=== PATIENT | male | born 1980 | race Caucasian/White ===

== ENCOUNTER 2019-05-07 20:37 | Emergency (ER) | payer SELFPAY ==
[2019-05-07 20:41] VITALS: BP 163/100; PULSE 88; RESP 18; TEMP 36.6; O2SAT 99
--- NOTE | 2019-05-07 21:02 | ED.GENADUL_ITS ---
Discharge Plan Disposition Patient Disposition: HOME Discharge Details Chief Complaint: Orthopedic Clinical Impression: Acute pain of left shoulder, Injury of left rotator cuff, Tinea pedis Primary Care Provider: None,None ED Provider: Gilbert Ferrari Home Meds and New Rx's Prescriptions: New ibuprofen 800 mg tablet 800 mg PO TID Qty: 30 RF: 0 Discharge Instructions Instructions: Rotator Cuff Injury (ED), Tinea Pedis (ED) Additional Instructions: Use sling over the next 2 weeks. Should remove your arm from the sling a few times a day to perform pendulum exercises. Please take ibuprofen over the counter. Take 600mg by mouth every 6 hours as needed for pain. Please take acetaminophen (tylenol) - 650mg every 6 hours by mouth as needed for pain. Please contact your primary care physician to arrange follow-up. If pain persists, you should follow-up with orthopedics. Use Lotrimin ultra for fungal infection of the feet -dose according to label. Return to the ER for any worsening or new concerning symptoms. Discharge Data Discharge Date/Time-TO BE ENTERED AT DEPARTURE: 05/07/19 21:48 Medical Decision Making 38-year-old male here with left shoulder pain, tender posterior rotator cuff and pain with internal rotation and abduction. Suspect rotator cuff injury. Patient neurovascular intact distally. X-ray of the left shoulder reviewed and interpreted by radiology: No fracture or subluxation demonstrated. Degenerative changes of AC joint Patient was given ibuprofen and Tylenol. A sling was provided. Usual and customary discharge instructions were reviewed with the patient. HPI General Mode of arrival: ambulatory . Date/Time Provider Initiated Documentation: 05/07/19 20:39 . Limitations to Documentation: no limitations . Information obtained by: patient . HPI Narrative: 38-year-old male presents with chief complaint of left shoulder pain. Pain started last night after mowing and raking his yard. Pain moderate. Pain worse with certain movements and when attempting to lift himself off of his couch. No other injury. No associated chest pain. Patient has chronic intermittent neck pain that is unchanged. Related Data Home Medications Medication Instructions Recorded Confirmed ibuprofen 800 mg PO TID #30 tab 05/07/19 Previous Rx's Medication Instructions Recorded ibuprofen 800 mg PO TID #30 tab 05/07/19 Allergies Allergy/AdvReac Type Severity Reaction Status Date / Time Penicillins Allergy Intermediate unsure Unverified 05/07/19 20:41 General Stated Complaint: Orthopedic SHAYY: 4 Review of Systems Cardiovascular Denies chest pain and Denies dyspnea Respiratory Denies dyspnea Musculoskeletal Reports as per HPI Integumentary/Breasts Reports rash (Soles of feet, burning itchy) [facility] Surgical History (Updated 05/07/19 @ 21:17 by Adalid Maki) H/O eye surgery (Acute) H/O spinal fusion (Acute) Social History Smoking/Tobacco Use Status: Current, status unknown Tobacco Type: smokeless tobacco Drug use: Never Substance use type: does not use Do you feel safe at home: Yes Do you feel safe in your relationship?: Yes Exam Const General: cooperative and no acute distress Neck Neck: trachea midline and supple Resp Auscultation: clear to auscultation bilaterally, no rales, no rhonchi and no wheezes Cardio Jugular venous pressure: no JVD Rate: regular rate and not tachycardic Rhythm: regular rhythm Skin Rashes: rashes noted (Feet with scaly red rash of the sole b/l) Neuro General: alert, awake and tone normal Motor: strength 5/5 throughout (distal LUE) Sensory Exam: no sensory deficits noted (distal LUE) Extrem General: no edema Left upper extremity: shoulder/upper arm Details: tenderness Location: other (posterior rotator cuff), axillary nerve sensory function normal, abnormal ROM Details: pain with active ROM Details: in ABduction and in internal rotation and other; no swelling, no deformity and no unsual warmth Course Vital Signs Temperature 36.6 C 05/07/19 20:41 Pulse 88 05/07/19 20:41 Respiratory Rate 18 05/07/19 20:41 Blood Pressure 163/100 H 05/07/19 20:41 Pulse Oximetry 99 05/07/19 20:41 Temperature 36.6 C 05/07/19 20:41 Temperature Source Temporal Artery Scan 05/07/19 20:41 Pulse 88 05/07/19 20:41 Respiratory Rate 18 05/07/19 20:41 Respiratory Effort 05/07/19 20:41 Blood Pressure 163/100 H 05/07/19 20:41 Blood Pressure Position Sitting 05/07/19 20:41 Pulse Oximetry 99 05/07/19 20:41 Oxygen Delivery Method Room Air 05/07/19 20:41 Oxygen Flow Rate 0 05/07/19 20:41 Pain Level 10 05/07/19 20:44
--- NOTE | 2019-05-07 21:10 | DI.RAD_ITS ---
SYMPTOM/DIAGNOSISs: PAIN LEFT SHOULDER: 05/07 Three views were obtained. There are degenerative changes of the acromioclavicular joint. No evidence of acute fracture or dislocation.
[2019-05-07] MEDS: Ibuprofen 600 MG TAB PO (21:14)
[2019-05-07] MEDS: Acetaminophen 325 MG TAB 650 MG PO (21:14)
--- NOTE | 2019-05-07 21:29 | DI.VRAD_ITS ---
EXAM: XR Left Shoulder EXAM DATE/TIME: 05/07/2019 8:56 PM CLINICAL HISTORY: 38 years old, male; Patient HX: Left shoulder pain with lrom, unknown source of injury but pain/difficulty lifting arm TECHNIQUE: Imaging protocol: XR Left shoulder. Views: 2 or more views. Reportedly, axillary views could not be completed. COMPARISON: No relevant prior studies available. FINDINGS: Bones/joints: No fracture or subluxation demonstrated. Degenerative changes of acromioclavicular joint. Surgical wires project over lower cervical spine. Lungs: Visualized portions of the lungs are clear. Soft tissues: Normal. IMPRESSION: No fracture or subluxation demonstrated. Degenerative changes of acromioclavicular joint. Dictated and Authenticated by: Don Dutta MD. Ordering:JUSTINE Hunt MD
== END 2019-05-07 21:48 | disposition home or self-care (01) ==
LOC: ER 21:19
PROVIDERS: Emergency Provider Student in an Organized Health Care Education/Training Program
DX: S46.002A Unspecified injury of muscle(s) and tendon(s) of the rotator cuff of left shoulder, initial encounter (principal); X50.3XXA Overexertion from repetitive movements, initial encounter; B35.3 Tinea pedis
CPT/HCPCS: 99283; 73030; 99282; L3650

== ENCOUNTER 2021-01-26 12:24 | Observation (INO) | payer SELFPAY ==
[2021-01-26 12:30] VITALS: BP 139/104; PULSE 88; RESP 16; TEMP 36.6; O2SAT 95
--- NOTE | 2021-01-26 12:57 | NUR.NOTE ---
Nursing Note: Referral given to Care Management for follow up with dentist FUNMILAYO for tooth pain, poor dentition, chronic fx tooth. Referral given to Care Management to establish care with a PCP routine time. Michelle Neves
[2021-01-26] MEDS: oxyCODONE 5 MG TAB PO (12:59)
[2021-01-26 13:26] LABS: ALT 91 U/L (16-63); AST 54 U/L (15-37); Albumin 3.6 g/dL (3.4-5.0); Alkaline Phosphatase 69 U/L (46-116); Anion Gap 11.2 mmol/L (3-11); BUN 9 mg/dL (7-18); Bilirubin, Total 0.5 mg/dL (0.2-1.0); CO2 24.8 mmol/L (21.0-32.0); CREATININE 0.7 mg/dL (0.70-1.30); Calcium 7.9 mg/dL (8.5-10.1); Chloride 107 mmol/L (98-107); Glucose 96 mg/dL (74-106); Potassium 3.7 mmol/L (3.5-5.1); Sodium 143 mmol/L (136-145)
[2021-01-26 13:27] LABS: Acetaminophen < 2 ug/mL (10-30)
--- NOTE | 2021-01-26 14:17 | ED.GENADUL_ITS ---
Discharge Plan Disposition Condition: Stable Discharge Details Chief Complaint: DentalOral Admit Date/Time: 01/26/21 14:53 Admit Provider: Abraham Purdy Attending Provider: Abraham Purdy Primary Care Provider: None,None ED Provider: Marj Ferrari Discharge Instructions Activity:: Activity as Tolerated Equipment/Supplies:: No Equipment Needed Diet:: Normal Diet Discharge Orders Discharge Orders: Discharge Order (Routine); Ordered 01/27/21 Ordered By: Abraham Purdy Discharge Data Discharge Date/Time-TO BE ENTERED AT DEPARTURE: 01/26/21 16:17 Medical Decision Making Harjinder Barcenas is a 40-year-old man recently diagnosed with Covid who presented to the emergency department with dental pain to the right starting clindamycin. On exam patient is well and nontoxic-appearing. Patient with poor dentition throughout and tenderness to palpation adjacent to tooth #27 without other abnormalities of the oropharynx, no impending airway compromise. Concern for dental infection, possible unintentional Tylenol overdose given reported home use of Tylenol. Exam/history at this time is not consistent with Jona's angina, meningitis, osteomyelitis, abscess or other deep space infection, sepsis. Plan for screening labs, oxycodone. Labs show mild elevation of LFTs, no recent lab with LFTs in the distant past normal. I contacted poison control who recommended start physical N- acetylcysteine protocol and repeat labs after 12 hours. If LFTs not rising at that time, patient may be discharged per their recommendation. I discussed plan with patient. Patient states that his pain is not under control and he is going to leave AGAINST MEDICAL ADVICE if he is not treated for the pain. Patient given Toradol. No improvement in pain after Toradol. Discussed with patient plan for one-time dose of IV Dilaudid, with likely plan once admitted overnight to switch to p.o. medications. Patient is amenable to admission. Clinical impression: Dental infection, possible accidental acetaminophen overdose Disposition: [facility] inpatient Medical Records Medical records reviewed: Yes I reviewed the patient's medical records. Lab Data Lab results reviewed: Yes I reviewed the patient's lab results. Labs: Laboratory Tests Range/Units 01/26/21 12:52 Sodium (136-145) mmol/L 143 Potassium (3.5-5.1) mmol/L 3.7 Chloride (98-107) mmol/L 107 Carbon Dioxide (21.0-32.0) mmol/L 24.8 Anion Gap (3-11) mmol/L 11.2 H BUN (7-18) mg/dL 9 Creatinine (0.70-1.30) mg/dL 0.7 Estimated GFR/1.73 m2 (mL/min/1.73m2) >= 60.00 Glucose (74-106) mg/dL 96 Calcium (8.5-10.1) mg/dL 7.9 L Total Bilirubin (0.2-1.0) mg/dL 0.5 AST (15-37) U/L 54 H ALT (16-63) U/L 91 H Alkaline Phosphatase (46-116) U/L 69 Total Protein (6.4-8.2) g/dL 7.0 Albumin (3.4-5.0) g/dL 3.6 Acetaminophen (10-30) ug/mL < 2 HPI General Mode of arrival: ambulatory . Date/Time Provider Initiated Documentation: 01/26/21 12:27 . Limitations to Documentation: no limitations . Information obtained by: patient, RN notes reviewed and old records reviewed . HPI Narrative: Mary Barcenas is a 40-year-old man without reported history of major medical problems presenting to the emergency department with pain. Patient reports that he has poor dentition and has a chronically broken tooth. Patient reports that 3 days ago he developed tooth pain in the area of the broken tooth (lower left canine). Patient reports that he went to urgent care yesterday for this, was given clindamycin. Patient reports that he has been taking clindamycin as prescribed but his pain has persisted unchanged. Patient reports that pain is localized to the area around the tooth and also to his left lower jaw. Patient reports that he feels otherwise well in his usual state of health. He denies other pain, fever, shortness of breath, cough, vomiting, diarrhea, numbness, weakness. He denies any difficulty or pain with swallowing. Has been eating and drinking as usual. Patient reports that he has been taking 2500 mg of Tylenol every 2 hours or so since onset of pain 3 days ago. Related Data Home Medications Medication Instructions Recorded Confirmed ibuprofen 800 mg PO TID #30 tab 05/07/19 01/26/21 acetaminophen 2,500 mg PO Q6H PRN 01/26/21 01/26/21 clindamycin HCl 300 mg PO Q6H 01/26/21 01/26/21 Previous Rx's Medication Instructions Recorded ibuprofen 800 mg PO TID #30 tab 05/07/19 Allergies Allergy/AdvReac Type Severity Reaction Status Date / Time Penicillins Allergy Intermediate unsure Unverified 01/26/21 12:43 General Stated Complaint: DentalOral SHAYY: 4 Review of Systems Narrative: Constitutional: denies fevers Eyes: denies eye pain ENT: denies ear pain, sore throat, facial swelling, drooling, hoarse voice, reports dental pain Cardiovascular: denies chest pain Respiratory: denies SOB, cough GI: denies abdominal pain, vomiting, diarrhea : denies flank pain MSK: denies back pain, neck pain, arthralgias, myalgias Skin: denies rash Neuro: denies headaches, numbness, weakness PFSH Surgical History H/O eye surgery H/O spinal fusion Social History Smoking/Tobacco Use Status: Current, status unknown Tobacco Type: smokeless tobacco Smoking risk assessment performed?: Yes Drug use: Never Substance use type: does not use Do you feel safe at home: Yes Do you feel safe in your relationship?: Yes Exam Narrative Exam Narrative: Constitutional: well and [id number], pleasant, conversing normally HENT: head atraumatic/normocephalic/normal inspection, mucous membranes moist, poor dentition throughout, chronic fractured tooth #27 with mild surrounding erythema of the gingiva, no fluctuance or abscess, tender to palpation of the gingiva adjacent to the tooth, no elevation of the tongue or subglossal induration, no pooling of secretions, no drooling, normal posterior pharynx, no other intraoral lesion, uvula midline, no trismus, no facial edema Eyes: conjunctiva normal, sclera normal, pupils 3mm b/l Neck: no stridor, normal ROM, trachea midline Resp: normal work of breathing, speaking in full sentences Cardio: normal rate, normal rhythm Skin: warm, dry, normal color, no rash Neuro: alert, not altered, grossly non-focal, normal tone, normal gait Ext: Moving all extremities equally Psych: normal mood, normal affect, normal behavior Course Vital Signs Vital signs: Vital Signs Temperature 36.6 C 01/26/21 12:30 Pulse 88 01/26/21 12:30 Respiratory Rate 16 01/26/21 12:30 Blood Pressure 139/104 H 01/26/21 12:30 Pulse Oximetry 95 01/26/21 12:30 Temperature 36.6 C 01/26/21 12:30 Temperature Source Temporal Artery Scan 01/26/21 12:30 Pulse 88 01/26/21 12:30 Respiratory Rate 16 01/26/21 12:30 Respiratory Effort Non-Labored 01/26/21 12:42 Blood Pressure 139/104 H 01/26/21 12:30 Blood Pressure Position Sitting 01/26/21 12:30 Pulse Oximetry 95 01/26/21 12:30 Oxygen Delivery Method Room Air 01/26/21 12:30 Oxygen Flow Rate 0 01/26/21 12:30 Pain Level 7 01/26/21 12:59 Lab/Test Results Lab/Test Results: Laboratory Tests Range/Units 01/26/21 12:52 Sodium (136-145) mmol/L 143 Potassium (3.5-5.1) mmol/L 3.7 Chloride (98-107) mmol/L 107 Carbon Dioxide (21.0-32.0) mmol/L 24.8 Anion Gap (3-11) mmol/L 11.2 H BUN (7-18) mg/dL 9 Creatinine (0.70-1.30) mg/dL 0.7 Estimated GFR/1.73 m2 (mL/min/1.73m2) >= 60.00 Glucose (74-106) mg/dL 96 Calcium (8.5-10.1) mg/dL 7.9 L Total Bilirubin (0.2-1.0) mg/dL 0.5 AST (15-37) U/L 54 H ALT (16-63) U/L 91 H Alkaline Phosphatase (46-116) U/L 69 Total Protein (6.4-8.2) g/dL 7.0 Albumin (3.4-5.0) g/dL 3.6 Acetaminophen (10-30) ug/mL < 2
[2021-01-26] MEDS: Ketorolac 30 MG/ML VIAL IVP ×2 (14:48→18:47)
[2021-01-26] MEDS: HYDROmorphone 2 MG/ML VIAL 1 MG IVP (15:06)
[2021-01-26 15:09] VITALS: BP 137/85; PULSE 65; RESP 16; O2SAT 93
[2021-01-26] MEDS: ACETYLCYSTEINE IV (15:41)
[2021-01-26] MEDS: WATER IV (15:41)
[2021-01-26] MEDS: DEXTROSE 5% IV (15:41)
[2021-01-26] MEDS: Clindamycin 300 MG CAP PO ×2 (15:46→19:03)
[2021-01-26 15:58] LABS: Source Nasal/Nares
[2021-01-26 16:10] VITALS: BP 159/100; PULSE 77; RESP 15; TEMP 36.5; O2SAT 97
[2021-01-26 16:34] VITALS: BP 159/100; PULSE 77; RESP 15; TEMP 36.5; O2SAT 97
[2021-01-26 16:49] VITALS: BP 161/104; PULSE 80; RESP 18; TEMP 36.6; O2SAT 96
[2021-01-26 16:55] LABS: COVID-19 PCR POSITIVE (Negative)
--- NOTE | 2021-01-26 18:57 | W.PM.HP.N ---
Date of service: 01/26/21 Time of Service: 18:58 Assessment and Plan Assessment and plan (1) Unintentional Tylenol overdose: Start date: 01/26/21 Start time: 19:09 Status: Acute Assessment and plan: Due to dental pain from abscess, he was taking 2500 mg q 2 hours. Placed on clindamycin QID yesterday. LFT elevated. Tylenol level negative. Started on mucomyst per poison control. will repeat lft at 1130 if negative he will not need dose of mucomyst and can be discharged home in am. He will need to be on something other than tylenol for pain. He is threatening AMA as he wants diluadid. He can have nucynta and toradol at this time. (2) Pain, dental: Start date: 01/26/21 Start time: 19:12 Status: Acute Assessment and plan: from broken tooth will need to see a dentist when infection clears as above (3) SARS-CoV-2 positive: Start date: 01/26/21 Start time: 19:12 Status: Acute Assessment and plan: He states he is on day 8 of being positive him and his family are positive. Oxygen level 96 % Denies CP, SOB and any other symptoms adamant about going home tomorrow above case discussed with Dr. Purdy History of Present Illness History of Present Illness Chief Complaint: Dental pain, COVID positive, Accidental tylenol overdose Narrative: 40 y.o obese male presented to [facility] ED with severe dental pain after taking 2500 mg tylenol q 2 hours. Started on clindamycin yesteday QID. COVID positive Day 8 with now no symptoms. In the ED he elevated LFTs with negative acetaminophen level. ED provider called poison control and was told to start acetylcystin with a recheck in 12 hours of tylenol level. However he is receiving protocol dosing and lFT will be rechecked at 6 hour cecy. If they are elevated he will receive a subsequent dose of medicine if they are negative he will be discharged home. Due to covid positive. I spoke with him on the phone. He states his face was swollen but due to body habitus we are unable to obtain CT. He is demanding dilaudid, however he is getting nucynta and toradol for pain. He is demanding to walk out AMA. At this time he is agreeable to staying but he wants to leave in the morning. He has been admitted to [facility] for further management. He denies CP , SOB, N/V/D. Oxygen level above 96% and states no symptoms. Review of Systems All systems reviewed & are unremarkable except as noted in HPI and below PFSH Surgical History H/O eye surgery H/O spinal fusion Social History Smoking/Tobacco Use Status: Current, status unknown Tobacco Type: smokeless tobacco Smoking risk assessment performed?: Yes Drug use: Never Substance use type: does not use Do you feel safe at home: Yes Do you feel safe in your relationship?: Yes Meds Home Medications and Allergies Allergies Allergy/AdvReac Type Severity Reaction Status Date / Time Penicillins Allergy Intermediate unsure Unverified 01/26/21 12:43 Home Medications Medication Instructions Recorded Confirmed Type ibuprofen 800 mg PO TID #30 tab 05/07/19 01/26/21 Rx acetaminophen 2,500 mg PO Q6H PRN 01/26/21 01/26/21 History clindamycin HCl 300 mg PO Q6H 01/26/21 01/26/21 History Exam Narrative Exam Narrative: Obese male laying in stretcher c/o pain. Wants IV pain medication, just given po medication approx 10-15 mins ago. Confirmed covid. LSC per nursing. denies CP SOB, face is swollen. moving all extremites. Abd obese. Results Labs Result diagrams: 01/27/21 05:35 01/26/21 12:52 Labs: Laboratory Results - last 24 hr 01/26/21 01/26/21 12:52 15:53 Sodium 143 Potassium 3.7 Chloride 107 Carbon Dioxide 24.8 Anion Gap 11.2 H BUN 9 Creatinine 0.7 Estimated GFR/1.73 m2 >= 60.00 Glucose 96 Calcium 7.9 L Total Bilirubin 0.5 AST 54 H ALT 91 H Alkaline Phosphatase 69 Total Protein 7.0 Albumin 3.6 Acetaminophen < 2 COVID-19 Source Nasal/nares SARS-CoV-2 (PCR) Positive A* Last Vital Signs Temp 36.6 C 01/26/21 16:49 Pulse 80 01/26/21 16:49 Resp 18 01/26/21 16:49 BP 161/104 H 01/26/21 16:49 Pulse Ox 96 01/26/21 16:49 COVID-19 Screening Had IN PERSON contact w/suspected or confirmed C-19 person: Yes
[2021-01-26] MEDS: Normal Saline Flush 10 ML SYR IVP (19:03)
[2021-01-26 19:08] VITALS: BP 137/71; PULSE 70; RESP 20; TEMP 36.8; O2SAT 93
--- NOTE | 2021-01-26 21:13 | NUR.NOTE ---
Nursing Note: patient states that he has 10/10 jaw pain. Pain relief given per provider orders. Patient offered Nucynta 50mg Q4 and patient refused stating that it does nothing. Why would I take a pill just to take a pill. It does nothing. Previous Nucynta given at 1644. At this time patient is refusing PRN pain med for 10/10 pain.
--- NOTE | 2021-01-26 21:15 | NUR.NOTE ---
spoke with poison control.recommendation that pt has blood work 12 hours after medication is initiated. ideal would be almost at the end of the third bad. information relayed to the dr. Nursing Note:
--- NOTE | 2021-01-26 22:50 | NUR.NOTE ---
pt insisted on living against medical advice. refused to wave at the camera making nursing aware he was leaving. Dr house advised. Pt insisted he was not wearing a mask. Javier called. Nursing tile setter supervisor called Pt entered elevator and stated this place is fucking useless. left by elevator and everyone advised. Nursing Note:
--- NOTE | 2021-01-27 23:33 | W.PM.DS.N ---
Date of service: 01/27/21 Time of Service: 23:33 DS: Diagnosis Discharge Diagnosis (1) Unintentional Tylenol overdose: Status: Acute (2) Pain, dental: Status: Acute (3) SARS-CoV-2 positive: Status: Acute Discharge Plan Disposition Patient Disposition: AGAINST MEDICAL ADVICE Condition: Stable Discharge Details Reason For Visit: ACCIDENTAL ACETAMINOPHEN OD,TOOTH PAIN Admit Date/Time: 01/26/21 14:53 Admit Provider: Abraham Purdy Attending Provider: Abraham Purdy Primary Care Provider: None,None Hospital Course Hospital Course: 40-year-old male presenting to [facility] emergency department with severe dental pain with been taking Tylenol 2500 mg every 2 hours and was started on clindamycin for dental infection on the day prior to presentation to the emergency department. Was recently diagnosed with COVID-19 8 days ago but currently without symptoms. He presented to the emergency department with his dental pain was found to have elevated liver function tests but with acetaminophen level less than 2. Emergency department provider called poison control was told to start Mucomyst and recheck his Tylenol levels in 12 hours. He was admitted on observation and started on acetylcysteine per protocol with a plan to recheck his liver function test and acetaminophen level in 6 hours. Patient was prescribed Toradol and Nucynta for his dental pain however the patient became very demanding expecting to be give Dilaudid and was threatening to leave the hospital AGAINST MEDICAL ADVICE. Initially he agreed to stay overnight but insisted that he would leave in the morning.Poison control advised of the patient's repeat liver function tests should be repeated at 3 AM however patient left AGAINST MEDICAL ADVICE at 2255 hrs. patient was advised not to use Tylenol for his dental pain. Home Meds and New Rx's Prescriptions: No Action ibuprofen 800 mg tablet 800 mg PO TID Qty: 30 RF: 0 clindamycin HCl 300 mg Capsule 300 mg PO Q6H RF: 0 acetaminophen 500 mg Tablet 2,500 mg PO Q6H PRNRF: 0 Discharge Instructions Activity:: Activity as Tolerated Equipment/Supplies:: No Equipment Needed Diet:: Normal Diet Discharge Orders Discharge Orders: Discharge Order (Routine); Ordered 01/27/21 Ordered By: Abraham Purdy Discharge Data Discharge Date/Time-TO BE ENTERED AT DEPARTURE: 01/26/21 22:54 Discharge Comment: ambulated with mask inplace DS: Summary Time Spent with Patient providing and/or coordinating discharge services: Less than 30 minutes Status at Discharge Functional status at discharge: independent ambulation Overall status at discharge: patient is back to baseline Mental Status: mental status grossly normal Speech and Movement: speech and movement normal Mood: congruent mood Affect: normal affect Exam Psych Mental Status: mental status grossly normal Speech and Movement: speech and movement normal Mood: congruent mood Affect: normal affect DS: Data Vitals/I&O Vitals and I&O: Vital Signs Temperature 36.8 C 01/26/21 19:08 Temperature Source Tympanic 01/26/21 19:08 Pulse 70 01/26/21 19:08 Pulse Rhythm Regular 01/26/21 16:49 Respiratory Rate 20 01/26/21 19:08 Respiratory Effort 01/26/21 16:49 Respiratory Depth Normal 01/26/21 16:49 Respiratory Pattern Normal 01/26/21 16:49 Blood Pressure 137/71 01/26/21 19:08 Blood Pressure Position Sitting 01/26/21 12:30 Pulse Oximetry 93 01/26/21 19:08 Oxygen Delivery Method Room Air 01/26/21 19:08 Oxygen Flow Rate 0 01/26/21 19:08 Pain Level 4 01/26/21 19:08 Comment 01/26/21 19:08 Intake & Output 01/26/21 01/27/21 01/27/21 23:59 11:59 23:59 Intake Total Balance Weight 221.7 kg Intake: IV Other: Urine Color Yellow Urine Appearance Clear Comment per pt report Voiding Methods Toilet Data Completed and Pending Labs on day of discharge: Labs from last 24 hours 01/27/21 01/27/21 01/27/21 11:30 05:35 05:35 WBC Cancelled RBC Cancelled Hgb Cancelled Hct Cancelled MCV Cancelled MCH Cancelled MCHC Cancelled RDW Cancelled Plt Count Cancelled MPV Cancelled Immature Gran % Cancelled Neutrophils % Cancelled Band Neutrophils % Cancelled Lymphocytes % Cancelled Atypical Lymphs % Cancelled Monocytes % Cancelled Eosinophils % Cancelled Basophils % Cancelled Metamyelocytes % Cancelled Myelocytes % Cancelled Promyelocytes % Cancelled Other Cells % Cancelled Nucleated RBC % Cancelled Absolute Neutrophils Cancelled Absolute Lymphocytes Cancelled Absolute Monocytes Cancelled Absolute Eosinophils Cancelled Absolute Basophils Cancelled RBC Morphology Cancelled Polychromasia Cancelled Hypochromasia Cancelled Poikilocytosis Cancelled Basophilic Stippling Cancelled Anisocytosis Cancelled Microcytosis Cancelled Macrocytosis Cancelled Spherocytes Cancelled Tear Drop Cells Cancelled Ovalocytes Cancelled Stomatocytes Cancelled [place] Bodies Cancelled Zahra Cells/Echinocytes Cancelled Acanthocytes (Spur) Cancelled Schistocytes Cancelled Sodium Cancelled Potassium Cancelled Chloride Cancelled Carbon Dioxide Cancelled Anion Gap Cancelled BUN Cancelled Creatinine Cancelled Estimated GFR/1.73 m2 Cancelled Glucose Cancelled Calcium Cancelled Total Bilirubin Cancelled Conjugated Bilirubin Cancelled AST Cancelled ALT Cancelled Alkaline Phosphatase Cancelled Total Protein Cancelled Albumin Cancelled 01/27/21 05:30 WBC RBC Hgb Hct MCV MCH MCHC RDW Plt Count MPV Immature Gran % Neutrophils % Band Neutrophils % Lymphocytes % Atypical Lymphs % Monocytes % Eosinophils % Basophils % Metamyelocytes % Myelocytes % Promyelocytes % Other Cells % Nucleated RBC % Absolute Neutrophils Absolute Lymphocytes Absolute Monocytes Absolute Eosinophils Absolute Basophils RBC Morphology Polychromasia Hypochromasia Poikilocytosis Basophilic Stippling Anisocytosis Microcytosis Macrocytosis Spherocytes Tear Drop Cells Ovalocytes Stomatocytes [place] Bodies Zahra Cells/Echinocytes Acanthocytes (Spur) Schistocytes Sodium Potassium Chloride Carbon Dioxide Anion Gap BUN Creatinine Estimated GFR/1.73 m2 Glucose Calcium Total Bilirubin Cancelled Conjugated Bilirubin Cancelled AST Cancelled ALT Cancelled Alkaline Phosphatase Cancelled Total Protein Cancelled Albumin Cancelled PFSH Surgical History H/O eye surgery H/O spinal fusion Social History Smoking/Tobacco Use Status: Current, status unknown Tobacco Type: smokeless tobacco Smoking risk assessment performed?: Yes Drug use: Never Substance use type: does not use Do you feel safe at home: Yes Do you feel safe in your relationship?: Yes
== END 2021-01-26 22:54 | disposition left against medical advice (07) ==
LOC: ER 12:42 → MS 16:20
PROVIDERS: Admitting Provider Internal Medicine; Emergency Provider Student in an Organized Health Care Education/Training Program; Visit Provider Internal Medicine
DX: T39.1X1A Poisoning by 4-Aminophenol derivatives, accidental (unintentional), initial encounter (principal); K08.89 Other specified disorders of teeth and supporting structures; E66.9 Obesity, unspecified; Z68.44 Body mass index [BMI] 60.0-69.9, adult; U07.1 COVID-19
CPT/HCPCS: 36415; 80048; 80053; 80076; 87635; 96365; 96375; 99220; 99285; NC; 80329; 85025; 99236; 99284; G0378; J0132; J1885

== ENCOUNTER 2022-11-05 15:29 | Emergency (ER) | payer SELFPAY ==
[2022-11-05 15:35] VITALS: BP 134/117; PULSE 102; RESP 18; TEMP 36.5; O2SAT 100
--- NOTE | 2022-11-05 15:52 | ED.GENADUL_ITS ---
Discharge Plan Disposition Patient Disposition: Home Condition: Stable Discharge Details Clinical Impression: Acute right lumbar radiculopathy Primary Care Provider: None,None ED Provider: Reyna Rich Home Meds and New Rx's Prescriptions: New diazepam [Valium] 5 mg tablet 5 mg PO TID PRNQty: 10 0RF Continued ibuprofen 800 mg tablet 800 mg PO TID Qty: 30 0RF acetaminophen 500 mg Tablet 2,500 mg PO Q6H PRN Discharge Instructions Additional Instructions: Take Valium as needed for musculoskeletal pain, you may take 1 tablet every 8 hours, do not consume alcohol or drive for 8 hours after taking this medication and noted that it can be addictive Take the prednisone 40 mg a day Light stretching as tolerated Warm or cool compresses whenever feels better approximately 2 to 3 hours after application If your pain is persisting greater than 3 days, recommendation that you follow- up with your primary care physician should you develop changes in bowel or bladder, Fever, chills, weakness, or any new or worsening complaints, please return to the emergency department for reassessment Discharge Data Discharge Date/Time-TO BE ENTERED AT DEPARTURE: 11/05/22 16:05 Medical Decision Making This 42-year-old gentleman with history of back pain and prior surgery presents with report of lumbar back pain since bowling this weekend He is neurovascularly intact He has medical signs or symptoms consistent with cauda equina syndrome is ambulatory with antalgic but steady gait There is no indication for diagnostic imaging at this time He is given pain medication, steroid for radicular symptoms, and muscle relaxants Recheck with primary care physician in 2 to 3 days recommended Return precautions reviewed and patient expressed understanding Medical Records Medical records reviewed: Yes I reviewed the patient's medical records. Lab Data Lab results reviewed: Yes I reviewed the patient's lab results. HPI General Date/Time Provider Initiated Documentation: 11/05/22 15:44 . HPI Narrative: This 42-year-old male presents with report of back injury, bowling on Tuesday. He states that he started with his right hand and felt his back twist. He denies any additional injuries. He states that he is unable to sit secondary to discomfort. He denies changes of bowel or bladder. He denies any strength or sensation changes to his extremities. He denies any urinary symptoms. He denies any fever or chills. Pain is exacerbated with movement. Related Data Home Medications Medication Instructions Recorded Confirmed ibuprofen 800 mg tablet 800 mg PO TID #30 tabs 05/07/19 11/05/22 acetaminophen 500 mg tablet 2,500 mg PO Q6H PRN 01/26/21 11/05/22 diazepam 5 mg tablet (Valium) 5 mg PO TID PRN #10 tabs 11/05/22 Previous Rx's Medication Instructions Recorded ibuprofen 800 mg tablet 800 mg PO TID #30 tabs 05/07/19 diazepam 5 mg tablet (Valium) 5 mg PO TID PRN #10 tabs 11/05/22 Allergies Allergy/AdvReac Type Severity Reaction Status Date / Time Penicillins Allergy Intermediate unsure Unverified 11/05/22 15:38 General Stated Complaint: Orthopedic SHAYY: 3 Review of Systems All systems reviewed & are unremarkable except as noted in HPI and below PFSH All Active Problems (Updated 11/05/22 @ 16:00 by ROBERT Nova) Acute right lumbar radiculopathy (Acute) Unintentional Tylenol overdose (Acute) Pain, dental (Acute) SARS-CoV-2 positive (Acute) Surgical History H/O eye surgery H/O spinal fusion Social History Smoking/Tobacco Use Status: Current, status unknown Tobacco Type: smokeless tobacco Smoking risk assessment performed?: Yes Drug use: Never Substance use type: does not use Do you feel safe at home: Yes Do you feel safe in your relationship?: Yes Exam Const General: cooperative and comfortable Resp Effort & Inspection: normal respiratory effort Auscultation: clear to auscultation bilaterally Cardio Rate: regular rate Rhythm: regular rhythm GI Inspection: normal to inspection Other: No abdominal bruit or pulsatile mass Back/Spine/Pelvis Back: no CVA tenderness Other: Lumbar spine tenderness, paraspinal tenderness Skin General skin exam: no rashes or lesions noted Neuro General: patient alert and patient oriented x3 Cognition: normal cognition Speech: speech normal Gait: antalgic Extrem Other: Neurovascularly intact Negative Babinski, negative straight leg raise bilaterally Course Vital Signs Vital signs: Vital Signs Temperature 36.5 C 11/05/22 15:35 Pulse 102 H 11/05/22 15:35 Respiratory Rate 18 11/05/22 15:35 Blood Pressure 134/117 H 11/05/22 15:35 Pulse Oximetry 100 11/05/22 15:35 Temperature 36.5 C 11/05/22 15:35 Pulse 102 H 11/05/22 15:35 Respiratory Rate 18 11/05/22 15:35 Respiratory Effort 11/05/22 15:38 Blood Pressure 134/117 H 11/05/22 15:35 Blood Pressure Position Standing 11/05/22 15:35 Pulse Oximetry 100 11/05/22 15:35 Oxygen Delivery Method Room Air 11/05/22 15:35 Oxygen Flow Rate 0 11/05/22 15:35 Pain Level 10 11/05/22 15:35
[2022-11-05 15:55] VITALS: BP 140/82
== END 2022-11-05 16:05 | disposition home or self-care (01) ==
PROVIDERS: Emergency Provider Physician Assistant
DX: M54.16 Radiculopathy, lumbar region (principal)
CPT/HCPCS: 99283; 99284

== ENCOUNTER 2022-11-11 00:52 | Emergency (ER) | payer SELFPAY ==
[2022-11-11 00:56] VITALS: BP 165/93; PULSE 104; RESP 22; TEMP 36.6; O2SAT 98
[2022-11-11 01:02] VITALS: BP 165/93; PULSE 104
--- NOTE | 2022-11-11 01:40 | W.ED.GENAD ---
Discharge Plan Disposition Patient Disposition: Home Condition: Good Discharge Details Clinical Impression: Back pain Primary Care Provider: None,None ED Provider: Nicko Dangelo Home Meds and New Rx's Prescriptions: New diazepam [Valium] 10 mg tablet 10 mg PO TID PRN7 Days Qty: 20 0RF lidocaine [Lidoderm] 5 % adhesive patch,medicated 1 patch Topical Q24H Qty: 15 0RF Discharge Instructions Instructions: Back Pain (ED) Additional Instructions: At this time your signs and symptoms are clinically consistent with a back sprain. This can cause significant pain and take a fair bit of time to heal. I expect 1 to 2 months for potential resolution. In the meantime do not lift anything greater than 5 pounds for the next 2 weeks. Avoid any significant vigorous physical activity. Perform easy gentle regular activities at home without any significant bending or lifting. Please take the steroids as directed. You have been given a prescription for Lidoderm patch. If your insurance does not cover this you can get [id number] Lidoderm patches at 4% which are almost just as effective. Please take the Valium as directed but do not take it when driving or operating any vehicles or heavy machinery, swimming, taking long baths, or operating firearms. Please use a heating pad as often as possible on your back. Perform daily gentle stretches on your back. Please continue to take the Tylenol and Motrin. You can take 1000 mg of Tylenol every 6 hours and 600 mg of ibuprofen every 6 hours. We have placed a referral with our case management team to help get your primary care provider and eventually direction for a CAT scan appropriate for this scenario. If you notice any worsening of your symptoms, or any new symptoms such as vomiting, diarrhea, fever, chills, shortness of breath, chest pain, numbness or tingling in your groin or legs, weakness in your legs, loss of control for your bowels or bladder, or fainting , please return immediately to the emergency department for reevaluation. Please follow up with your primary care provider as soon as possible for reassessment and reevaluation. As always, it was a pleasure participating in your medical care today. Medical Decision Making 42-year-old male with past medical history of a BMI of 66, weighs 217 kg, and a recent diagnosis back strain a few days ago presents today for evaluation of continued back pain. Patient states that he had been taking the Valium and the steroids that were prescribed to him, and had been doing much better, however there was a spring that had broken on his recliner chair, he was on the ground fixing it today. When he tried to get up he noticed a sudden significant searing pain in his right lower back again. Patient denies any saddle anesthesia, numbness or tingling in the groin, change in sensation when wiping. Patient denies any change in sensation during sexual intercourse, difficulty achieving or maintaining an erection or ejaculation, bowel or bladder incontinence, leakage, or retention. Patient denies any weakness in the lower extremities, atypical falls or imbalance. No other trauma. No other complaints at this time. He denies a history of IV drug use. Physical exam demonstrates reproducible tenderness over the right paraspinal space at L2/L3. No clinical evidence of cauda equina syndrome. No neurovascular deficits otherwise. No new trauma. Symptoms appear clinically inconsistent with acute cord compression. Suspect a return of his right paraspinal muscular spasm as the cause of his pain in conjunction with mild radiculopathy. With no evidence of an emergent need for imaging, there is no need for emergent MRI or transfer. Unfortunately the patient is not a candidate for CT scan here secondary to his weight being above the limits of our CAT scanner. Patient does not have a primary care provider. We will prescribe Lidoderm patches, few more muscle relaxants, recommendations for continued Tylenol Motrin and heating pad, and 3 [place] tablets for home use as needed. We will place a referral with case management for a primary care provider for the patient with potential outpatient CT scanning at a facility with an appropriate scanner capacity. Discussed red flags for which to return. I have extensively reviewed the treatment plan and discharge instructions with the patient. I have addressed all patient concerns at this time. The patient was made aware of what symptoms to monitor for that would warrant a return to the emergency department. Discussed the plan with the patient, they demonstrate verbal understanding and agreement with our assessment and plan at this time. The documentation in this chart was dictated using [employer] dictation software. Please excuse any dictation errors. HPI General Date/Time Provider Initiated Documentation: 11/11/22 00:53. HPI Narrative: 42-year-old male with past medical history of a BMI of 66, weighs 217 kg, and a recent diagnosis back strain a few days ago presents today for evaluation of continued back pain. Patient states that he had been taking the Valium and the steroids that were prescribed to him, and had been doing much better, however there was a spring that had broken on his recliner chair, he was on the ground fixing it today. When he tried to get up he noticed a sudden significant searing pain in his right lower back again. Patient denies any saddle anesthesia, numbness or tingling in the groin, change in sensation when wiping. Patient denies any change in sensation during sexual intercourse, difficulty achieving or maintaining an erection or ejaculation, bowel or bladder incontinence, leakage, or retention. Patient denies any weakness in the lower extremities, atypical falls or imbalance. No other trauma. No other complaints at this time. He denies a history of IV drug use. Related Data Home Medications Medication Instructions Recorded Confirmed diazepam 10 mg tablet (Valium) 10 mg PO TID PRN 7 days #20 tabs 11/11/22 lidocaine 5 % topical patch 1 patch topical Q24H #15 ea 11/11/22 (Lidoderm) Previous Rx's Medication Instructions Recorded diazepam 10 mg tablet (Valium) 10 mg PO TID PRN 7 days #20 tabs 11/11/22 lidocaine 5 % topical patch 1 patch topical Q24H #15 ea 11/11/22 (Lidoderm) Allergies Allergy/AdvReac Type Severity Reaction Status Date / Time Penicillins Allergy Intermediate unsure Unverified 11/11/22 01:07 General Stated Complaint: Nk/Back Pain SHAYY: 4 Review of Systems All systems reviewed & are unremarkable except as noted in HPI and below PFSH All Active Problems Acute right lumbar radiculopathy (Acute) Back pain (Acute) Unintentional Tylenol overdose (Acute) Pain, dental (Acute) SARS-CoV-2 positive (Acute) Surgical History H/O eye surgery H/O spinal fusion Social History Smoking/Tobacco Use Status: Current, status unknown Tobacco Type: smokeless tobacco Smoking risk assessment performed?: Yes Drug use: Never Substance use type: does not use Do you feel safe at home: Yes Do you feel safe in your relationship?: Yes Exam Narrative Exam Narrative: 1.Const: Well-nourished, Well-developed, appearing stated age 2.Eyes: PERRL, no conjunctival injection, and symmetrical lids. 3.ENT: Atraumatic external nose and ears. Moist MM. Neck: Symmetric, trachea midline, No thyromegaly. 4.CVS: +S1/S2, No murmurs or gallops. Peripheral pulses 2+ and equal in all extremities. Brisk capillary refill in all extremities. 5.RESP: Unlabored respiratory effort. Clear to auscultation bilaterally. No wheezes rales or rhonchi 6.GI: Soft, Nontender/Nondistended, No hepatosplenomegaly. No guarding or rebound. 7.MSK: Normocephalic/Atraumatic, Extremities w/o deformity or ttp No cyanosis or clubbing, Normal movement of all extremities No midline tenderness to palpation over the CTLS spine. Normal ROM in flexion, extension, side bend, and rotation. There is evidence of pain though on palpation of the right lower paralumbar area around L3-L3. Pain is made worse with right straight leg raise. Patient has +5 out of 5 strength in the lower extremities in dorsiflexion and plantarflexion, knee flexion and extension, hip flexion and extension. Normal strength for dorsiflexion and plantar flexion of the great toe bilaterally. There is +2 over 2 dorsalis pedis pulses bilaterally. There is normal sensation to the skin with light touch at the foot, knee, and hip. Normal saddle sensation. Good sensation over the deep sural nerve area bilaterally. Rectal exam deferred. Reflexes are +2 over 4 in the patellar reflex bilaterally. +5 out of 5 strength in the medial, ulnar, radial nerve distribution bilaterally in the hands as well as intact light touch sensation to these dermatomes on the hands 8.Skin: Warm, Dry. No rashes or lesions. 9.Neuro: card reader II-XII grossly intact. Sensation grossly intact, no focal neurologic deficits. 10.Psych: (AAO) x3. Appropriate mood and affect Course Vital Signs Vital signs: Vital Signs Temperature 36.6 C 11/11/22 00:56 Pulse 104 H 11/11/22 00:56 Respiratory Rate 22 11/11/22 00:56 Blood Pressure 165/93 H 11/11/22 00:56 Pulse Oximetry 98 11/11/22 00:56 Temperature 36.6 C 11/11/22 00:56 Pulse 104 H 11/11/22 00:56 Respiratory Rate 22 11/11/22 00:56 Respiratory Effort 11/11/22 01:03 Blood Pressure 165/93 H 11/11/22 00:56 Pulse Oximetry 98 11/11/22 00:56 Oxygen Delivery Method Room Air 11/11/22 00:56 Oxygen Flow Rate 0 11/11/22 00:56 Pain Level 10 11/11/22 00:56
--- NOTE | 2022-11-11 01:59 | NUR.NOTE ---
Referral made to [facility] for Radiculopathy/back pain. Patient nees a new PCP, outpatient catscan that will accommodate his weight and he has no insurance. Refer to Dr. Dangelo's note for additional info. Put the referral in the special needs caregiver's box for follow up assistance.Nursing Note:
== END 2022-11-11 02:19 | disposition home or self-care (01) ==
PROVIDERS: Emergency Provider Student in an Organized Health Care Education/Training Program
DX: M54.50 Low back pain, unspecified (principal)
CPT/HCPCS: 99283; 99284

== ENCOUNTER 2024-10-14 20:03 | Emergency (ER) | payer SELFPAY ==
[2024-10-14 20:06] VITALS: BP 166/96; PULSE 78; RESP 20; TEMP 36.9; O2SAT 96
--- NOTE | 2024-10-14 20:12 | ED.GENADUL_ITS ---
Discharge Plan Disposition Patient Disposition: Home Condition: Stable Discharge Details Clinical Impression: Vesicular eruption, Cellulitis Primary Care Provider: None,None ED Provider: Nicko Magallon Home Meds and New Rx's Prescriptions: New valacyclovir 1 gram tablet 1,000 mg PO TID 10 Days Qty: 30 0RF sulfamethoxazole-trimethoprim 800-160 mg tablet 1 tab PO BID 10 Days Qty: 20 0RF Discharge Instructions Instructions: Sulfamethoxazole and Trimethoprim, Valacyclovir, Cellulitis (Skin Infection), Adult ED, Shingles Additional Instructions: You were seen in the emergency department for the rash of your left leg, this is concerning for cellulitis as well as possible shingles as well as a possible superficial thrombophlebitis. I am going to start you on antibiotics and an antiviral to fight both cellulitis and shingles, I want you to get an ultrasound scheduled for tomorrow to rule out any clot pathology but this is low on the differential. Please take both medications as directed, take Tylenol or ibuprofen for pain as needed. Please return to the emergency department for any severe increase in redness and swelling with fever or purulent drainage from the area or gross unilateral leg swelling despite treatment HPI General Date/Time Provider Initiated Documentation: 10/14/24 20:11 . HPI Narrative: 44 year-old male presents to ED today by POV/ambulating with a chief complaint of L leg rash/lesions with onset for the past 4 days. Quality described as itchy painful red rash to medial calf, then having spread of satelite lesions around the L knee, no radiation to purulent drainage, unilateral leg swelling, numbness/tingling, endorses warmth to touch and a larger diffuse erythema around the calf lesion. Severity is described as moderate. Palliating factors include nothing specific attempted. Provoking factors include nothing specific. Patient not anticoagulated. Related Data Home Medications ?Medication ?Instructions ?Recorded ?Confirmed sulfamethoxazole 800 1 tab PO BID cellulitis 10 days 10/14/24 mg-trimethoprim 160 mg tablet #20 tabs valacyclovir 1 gram tablet 1,000 mg PO TID shingles 10 days 10/14/24 #30 tabs Previous Rx's ?Medication ?Instructions ?Recorded sulfamethoxazole 800 1 tab PO BID cellulitis 10 days 10/14/24 mg-trimethoprim 160 mg tablet #20 tabs valacyclovir 1 gram tablet 1,000 mg PO TID shingles 10 days 10/14/24 #30 tabs Allergies Allergy/AdvReac Type Severity Reaction Status Date / Time Penicillins Allergy Intermediate unsure Unverified 10/14/24 20:08 General Stated Complaint: Cellulitis SHAYY: 3 Review of Systems All systems reviewed & are unremarkable except as noted in HPI and below Exam Narrative Exam Narrative: GENERAL APPEARANCE: Well-nourished, non-toxic, awake and alert, atraumatic, no acute distress. SKIN: Warm, pink, dry, diffuse 3 x 5 cm area of mild erythema with warmth to touch in the medial calf, there are satellite lesions that appear to be vesicular around the left knee, no unilateral leg swelling, Homans negative HEAD: Normocephalic, atraumatic, normal hair distribution for gender/age. EYES: Normal conjunctiva, no exudates on lids/lashes. ENT: Nares patent, no circumoral cyanosis, no facial swelling NECK: Supple, trachea midline, painless cervical ROM. LUNGS/CHEST: Lungs CTA bilaterally, non-labored respirations, normal A/P diameter, symmetrical expansion, no chest wall deformity HEART (CV/PV): Regular rate and rhythm without murmur, no peripheral edema, no JVD. ABDOMEN: Soft, non-distended, no guarding. MSK: Normal ROM, no swelling/deformity to bilateral UEs or LEs, moving all extremities without weakness, no cyanosis, spine midline without tenderness, normal curvature. NEURO: Mental Status AAOx4 - alert to person, place, time, events No facial droop, no forehead involvement. Motor: No focal weakness - strength 5/5 in bilateral UEs and LEs, proximal and distal, symmetric. Sensory: sensation intact to light touch globally. Gait normal: patient ambulated without ataxia into ED room. PSYCH: euthymic, cooperative, pleasant, appropriate speech Course Vital Signs Vital signs: Vital Signs Temperature 36.9 C 10/14/24 20:06 Pulse 78 10/14/24 20:06 Respiratory Rate 20 10/14/24 20:06 Blood Pressure 166/96 H 10/14/24 20:06 Pulse Oximetry 96 10/14/24 20:06 Temperature 36.9 C 10/14/24 20:06 Temperature Source Oral 10/14/24 20:06 Pulse 78 10/14/24 20:06 Respiratory Rate 20 10/14/24 20:06 Respiratory Effort Normal, Non-Labored 10/14/24 20:09 Blood Pressure 166/96 H 10/14/24 20:06 Blood Pressure Position Sitting 10/14/24 20:06 Pulse Oximetry 96 10/14/24 20:06 Oxygen Delivery Method Room Air 10/14/24 20:06 Oxygen Flow Rate 0 10/14/24 20:06 Pain Level 4 10/14/24 20:06 Medical Decision Making This dictation utilizes [id number] dictation software and may contain unedited grammatical errors. 44 year-old male presents to ED today by POV/ambulating with a chief complaint of L leg rash/lesions with onset for the past 4 days. Quality described as itchy painful red rash to medial calf, then having spread of satelite lesions around the L knee, no radiation to purulent drainage, unilateral leg swelling, numbness/tingling, endorses warmth to touch and a larger diffuse erythema around the calf lesion. Severity is described as moderate. Palliating factors include nothing specific attempted. Provoking factors include nothing specific. Patients' medical history: Noncontributory. Family and social history: Noncontributory. Pertinent exam findings / vital signs include diffuse 3 x 5 cm area of mild erythema with warmth to touch in the medial calf, there are satellite lesions that appear to be vesicular around the left knee, no unilateral leg swelling, Homans negative. Differential / pathologies of concern include cellulitis, shingles, superficial thrombophlebitis. Diagnostic studies of: -Recommend ultrasound tomorrow and provided a form for the patient to schedule this as clot pathology is low on the differential compared to shingles and cellulitis. Interventions of: -Valacyclovir as well as Bactrim. ED Course/Assessment/Plan: 44-year-old male presents with an area of cellulitic skin in the medial calf with satellite lesions that appear to be vesicular I do not know if he had a prior vesicular lesion in the calf and itch did not has become more cellulitic but I am going to treat for cellulitis and shingles simultaneously, recommend ultrasound tomorrow for possible superficial thrombophlebitis that this is low on differential, strict return criteria for any unilateral leg swelling, severe increase in pain and swelling with fever and red streaking up the leg. Findings not consistent with DVT. Disposition of cellulitis, vesicular eruption. Patient verbalized understanding of the plan and return to ED criteria and engaged in shared decision making. Medical Records Medical records reviewed: Yes I reviewed the patient's medical records. Quality:SDOH Health Related Social Needs: No Data to Display PFSH All Active Problems (Updated 10/14/24 @ 20:30 by ROBERT Durán) Cellulitis (Acute) Vesicular eruption (Acute) Unintentional Tylenol overdose (Acute) Pain, dental (Acute) SARS-CoV-2 positive (Acute) Surgical History H/O eye surgery H/O spinal fusion Social History Smoking/Tobacco Use Status: Current every day Tobacco Type: smokeless tobacco Smoking risk assessment performed?: Yes Alcohol Intake: current Alcohol Intake frequency: a few times a month Drug use: Never Substance use type: does not use Do you feel safe at home: Yes Do you feel safe in your relationship?: Yes
[2024-10-14] MEDS: Sulfameth/Trimeth DS TAB 1 TAB PO (20:40)
[2024-10-14] MEDS: valACYclovir 1,000 MG TAB 1000 MG PO (20:40)
--- NOTE | 2024-10-14 21:08 | NUR.NOTE ---
Ultrasound requisition faxed to [facility] for LLE DVT. Patient advised to call [facility] scheduling after 7am on Tuesday10/15/24. Nursing Note:
== END 2024-10-14 20:43 | disposition home or self-care (01) ==
LOC: ER 21:03
PROVIDERS: Emergency Provider Physician Assistant
DX: R23.8 Other skin changes (principal); L03.116 Cellulitis of left lower limb; F17.290 Nicotine dependence, other tobacco product, uncomplicated; Z98.1 Arthrodesis status
CPT/HCPCS: 99283

== ENCOUNTER 2024-12-10 05:48 | Emergency (ER) | payer SELFPAY ==
[2024-12-10] VITALS (21 sets, daily range): BP systolic 130–161; BP diastolic 68–87; PULSE 58–92; RESP 16–25; TEMP 36.4; O2SAT 95–100
--- NOTE | 2024-12-10 05:45 | RT.EKG_ITS ---
APPROVED REPORT Exam: Resting ECG Reason for Exam: chest pain Patient Location: E HR:67 bpm ECG Measurements Heart Rate 67 AXIS UT 168 P 36 QRSd 85 QRS 61 QT 397 T 41 QTc 419 Conclusion Sinus rhythm...normal P axis, V-rate 60- 99 Physician: no stemi
--- NOTE | 2024-12-10 06:00 | DI.RAD_ITS ---
Exam(s) XR PORTABLE CHEST AP EXAM: XR PORTABLE CHEST AP CLINICAL HISTORY: substernal cp. TECHNIQUE: 2D digital imaging was performed. COMPARISON: No exams were available for comparison FINDINGS: Single AP portable view. There is mild cardiomegaly. Mediastinum not widened Lungs are clear. No infiltrates nor obvious pleural effusions. IMPRESSION: No acute pulmonary findings on this single AP portable view of the chest.Mild cardiomegaly. DATA REPOSITORY: RADIATION DOSE DELIVERED:
[2024-12-10] MEDS: nitroGLYcerin 0.4 MG TAB SL (06:05)
--- NOTE | 2024-12-10 06:06 | ED.GENADUL_ITS ---
Discharge Plan Disposition Patient Disposition: Home Condition: Good Discharge Details Chief Complaint: Chest Pain Clinical Impression: Chest pain Primary Care Provider: None,None ED Provider: Nicko Dangelo Home Meds and New Rx's Prescriptions: No Action No Known Home Meds Discharge Instructions Instructions: Chest Pain, Adult ED Additional Instructions: At this time your workup has returned reassuring. There is no signs of heart attack, blood clots, pneumonia, or tumors. There is a high likelihood that your symptoms may be musculoskeletal in origin. Please continue to take Tylenol and Motrin. We have placed a referral for new PCP. If you notice any worsening of your symptoms, or any new symptoms such as vomiting, diarrhea, fever, chills, shortness of breath, chest pain, numbness, weakness, or fainting , please return immediately to the emergency department for reevaluation. Please follow up with your primary care provider as soon as possible for reassessment and reevaluation. As always, it was a pleasure participating in your medical care today. Stand Alone Forms: Work Release HPI General Date/Time Provider Initiated Documentation: 12/10/24 06:01 . HPI Narrative: 44-year-old male with a past medical history of a BMI of 70, presents today for evaluation of chest pain. Patient states that he woke up suddenly this morning at 510 with a sharp stabbing midsternal chest pain, he was sweaty and diaphoretic, and came to the ER for further assessment. No aggravating or relieving factors. No pleuritic chest pain. No exertional worsening of his symptoms. No positional change. He states yesterday he was totally fine with no increase shortness of breath or fatigue. He denies any heavy weight on his chest. He still describes sensation as sharp and constant. He denies any recent long trips surgeries or procedures. He denies any history of blood clots or family history of blood clots. He does admit to some mild swelling and pain in the left calf that has been present for the last month. He does not smoke. He does not drink any regular alcohol. No family history of sudden cardiac or AK at a young age. No cough or hemoptysis. Related Data Home Medications ?Medication ?Instructions ?Recorded ?Confirmed Unknown [No Known Home Meds] 12/10/24 12/10/24 Allergies Allergy/AdvReac Type Severity Reaction Status Date / Time Penicillins Allergy Intermediate unsure Unverified 12/10/24 06:24 General Stated Complaint: Chest Pain SHAYY: 3 Exam Narrative Exam Narrative: 1.Const: Well-nourished, Well-developed, appearing stated age 2.Eyes: PERRL, no conjunctival injection, and symmetrical lids. 3.ENT: Atraumatic external nose and ears. Moist MM. Neck: Symmetric, trachea midline, No thyromegaly. 4.CVS: +S1/S2, Peripheral pulses 2+ and equal in all extremities. Brisk capillary refill in all extremities. 5.RESP: Unlabored respiratory effort. Clear to auscultation bilaterally. No wheezes rales or rhonchi 6.GI: Soft, Nontender/Nondistended, No hepatosplenomegaly. No guarding or rebound. 7.MSK: Normocephalic/Atraumatic, Extremities w/o deformity or ttp No cyanosis or clubbing, Normal movement of all extremities. Patient's left calf demonstrates a small area of induration without erythema or warmth on the medial aspect of the calf. Mild to moderate tenderness is present in this area. 8.Skin: Warm, Dry. No rashes or lesions. 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 Sensation grossly intact, no focal neurologic deficits. 10.Psych: (AAO) x3. Appropriate mood and affect Course Vital Signs Vital signs: Vital Signs Temperature 36.4 C L 12/10/24 05:55 Pulse 70 12/10/24 05:55 Respiratory Rate 18 12/10/24 05:55 Blood Pressure 161/68 H 12/10/24 05:55 Pulse Oximetry 98 12/10/24 05:55 Temperature 36.4 C L 12/10/24 05:55 Pulse 70 12/10/24 05:55 Respiratory Rate 18 12/10/24 05:55 Blood Pressure 161/68 H 12/10/24 05:55 Blood Pressure Position Supine 12/10/24 05:55 Pulse Oximetry 98 12/10/24 05:55 Oxygen Delivery Method Room Air 12/10/24 05:55 Oxygen Flow Rate 0 12/10/24 05:55 Pain Level 9 12/10/24 05:55 Procedure Abscess Drainage Provider that performed the procedure: Nicko Dangelo Medical Decision Making 44-year-old male with a past medical history of a BMI of 70, presents today for evaluation of chest pain. Patient states that he woke up suddenly this morning at 510 with a sharp stabbing midsternal chest pain, he was sweaty and diaphoretic, and came to the ER for further assessment. No aggravating or relieving factors. No pleuritic chest pain. No exertional worsening of his symptoms. No positional change. He states yesterday he was totally fine with no increase shortness of breath or fatigue. He denies any heavy weight on his chest. He still describes sensation as sharp and constant. He denies any recent long trips surgeries or procedures. He denies any history of blood clots or family history of blood clots. He does admit to some mild swelling and pain in the left calf that has been present for the last month. He does not smoke. He does not drink any regular alcohol. No family history of sudden cardiac or AK at a young age. No cough or hemoptysis. Exam demonstrates the patient that is in moderate pain. No reproducible pain on exam though. No rash. Radial pulses intact. Vital signs are notably stable. He is mildly hypertensive. EKG shows no evidence of STEMI, no [id number]. Symptoms appear inconsistent with dissection. ACS is on the differential but unlikely. GERD reflux esophageal spasm pericarditis is of concern. PE is on the differential secondary to the swelling in the calf that is noted. This may be just an old muscle strain or spasm or contusion. We will get a D-dimer, given nitro to see if this makes any change or transition. Give aspirin and Tylenol, give GI cocktail, monitor closely and reassess. 7:41 AM Laboratory workup shows no white count bandemia or left shift. Electrolytes normal, D-dimer normal, patient ruled out for PE with PERC and Wells score in conjunction with dimer. No evidence of tamponade on ultrasound. EKG normal. Serial troponins are normal. proBNP normal suggesting no signs of heart strain. Patient did not feel better with nitroglycerin, or GI cocktail. However after the aspirin and Tylenol his pain eventually notably improved transitioning from a 10 to a 4. Now his pain is only present with certain movements and positions. It appears to be notably musculoskeletal. Symptoms are clinically inconsistent with life-threatening etiologies of dissection, ACS, PE, pneumothorax. Patient will be discharged home. He does not have a primary care provider and we will place a referral for 1. Discussed red flags for which to return. I have extensively reviewed the treatment plan and discharge instructions with the patient. I have addressed all patient concerns at this time. The patient was made aware of what symptoms to monitor for that would warrant a return to the emergency department. Discussed the plan with the patient, they demonstrate verbal understanding and agreement with our assessment and plan at this time. The documentation in this chart was dictated using [employer] dictation software. Please excuse any dictation errors. Quality:SDOH Health Related Social Needs: No Data to Display PFSH All Active Problems (Updated 12/10/24 @ 07:41 by Nicko Dangelo DO) Chest pain (Acute) Unintentional Tylenol overdose (Acute) Pain, dental (Acute) SARS-CoV-2 positive (Acute) Surgical History H/O eye surgery H/O spinal fusion Social History Smoking/Tobacco Use Status: Current every day Tobacco Type: smokeless tobacco Smoking risk assessment performed?: Yes Alcohol Intake: current Alcohol Intake frequency: a few times a month Drug use: Never Substance use type: does not use Do you feel safe at home: Yes Do you feel safe in your relationship?: Yes POCUS Exam (ED) Limited Cardiac Exam DATE OF EXAM: 12/10/24 TIME OF EXAM: 06:20 PROVIDER THAT PERFORMED THE STUDY: Nicko Dangelo IS MAGDALENA A REPEAT EXAM DURING THIS ENCOUNTER: no REASON FOR EXAM: Chest pain VISUALIZED STRUCTURES: Left atrium, Left ventricle, Right ventricle, Mitral valve and Interventricular septum VIEW OBTAINED: Parasternal long-axis PERTINENT FINDINGS/IMPRESSION: No apparent abnormalities Exam complete Limited Soft Tissue Exam DATE OF EXAM: 12/10/24 TIME OF EXAM: 06:21 PROVIDER THAT PERFORMED THE STUDY: Nicko Dangelo IS MAGDALENA A REPEAT EXAM DURING THIS ENCOUNTER: No LOCATION OF EXAM: Lower extremity/left REASON FOR EXAM: Lymphadenopathy VISUALIZED STRUCTURES: Subcutaneous tissue PERTINENT FINDINGS/IMPRESSION: No apparent abnormalities. Exam Complete
[2024-12-10] MEDS: Acetaminophen 500 MG TAB 1000 MG PO (06:11)
[2024-12-10] MEDS: MYLANTA 30 ML, LIDOCAINE 2% VISCOUS UD 15 ML PO (06:12)
[2024-12-10] MEDS: Aspirin 81 MG CHEW 324 MG CH (06:12)
[2024-12-10 06:14] LABS: Abs Immature Grans 0.02 10^3/uL (0.0-0.06); Absolute Basophil Count 0.07 10^3/uL (0.0-0.2); Absolute Eosinophil Count 0.15 10^3/uL (0.0-0.7); Absolute Lymphocyte Count 4.37 10^3/uL (1.2-3.4); Absolute Monocyte Count 0.86 10^3/uL (0.1-0.8); Absolute Neutrophil Count 5.03 10^3/uL (1.2-6.7); Basophils % 0.7 %; Eosinophils % 1.4 %; HCT 46.4 % (40.0-50.0); HGB 14.7 g/dL (13.5-17.5); Immature Grans % 0.2 %; Lymphocytes % 41.6 %; MCH 29.3 pg (27.0-33.0); MCHC 31.7 % (32.0-36.0); MCV 92 fL (80-95); MPV 10.9 fL (8.0-11.0); Monocytes % 8.2 %; Neutrophils % 47.9 %; Platelet Count 280 10^3/uL (130-400); RBC 5.02 10^6/uL (4.36-5.78); RDW 14.8 % (11.8-14.1); RDW-SD 50.4 fL
[2024-12-10 06:35] LABS: ALT 34 U/L (16-63); AST 21 U/L (15-37); Albumin 3.6 g/dL (3.4-5.0); Alkaline Phosphatase 70 U/L (46-116); Anion Gap 4.8 mmol/L (3-11); BUN 17 mg/dL (7-18); CO2 32.2 mmol/L (21.0-32.0); CREATININE 1.1 mg/dL (0.70-1.30); Calcium 8.6 mg/dL (8.5-10.1); Chloride 106 mmol/L (98-107); Estimated GFR 85.42 (mL/min/1.73m2); Glucose 111 mg/dL (74-106); Potassium 4.4 mmol/L (3.5-5.1); Sodium 143 mmol/L (136-145); Total Protein 7.4 g/dL (6.4-8.2)
[2024-12-10 06:41] LABS: NT-proBNP 38 pg/mL (<300); Troponin I 7 ng/L (<or=76)
[2024-12-10 06:43] LABS: D-Dimer 267 ng/mlFEU (<500)
[2024-12-10] MEDS: MORPHine 4 MG/ML SYR IVP (07:20)
--- NOTE | 2024-12-10 07:24 | DI.VRAD_ITS ---
PROCEDURE INFORMATION: Exam: XR Chest Exam date and time: 12/10/2024 6:31 AM Age: 44 years old Clinical indication: Sternal or substernal pain; Substernal cp TECHNIQUE: Imaging protocol: Radiologic exam of the chest. Views: 1 view. COMPARISON: None provided. FINDINGS: Lungs: The pulmonary vasculature is mildly congested. The lungs are otherwise clear. Pleural spaces: Unremarkable. No pleural effusion. No pneumothorax. Heart/Mediastinum: The cardiac silhouette is mildly large. Bones/joints: Unremarkable. IMPRESSION: Mild cardiomegaly and pulmonary vascular congestion. Dictated and Authenticated by: Ed Wilkins MD. Orderin Loreto Maharaj MD
[2024-12-10 07:26] LABS: Troponin I 6 ng/L (<or=76)
== END 2024-12-10 07:56 | disposition home or self-care (01) ==
PROVIDERS: Emergency Provider Student in an Organized Health Care Education/Training Program
DX: R07.9 Chest pain, unspecified (principal)
CPT/HCPCS: 36415; 76882; 80053; 93005; 93308; 96374; 99285; 71045; 83880; 84484; 85025; 85379; 93010; 99284; J2270

== ENCOUNTER 2025-05-19 17:38 | Emergency (ER) | payer SELFPAY ==
[2025-05-19 17:43] VITALS: BP 183/92; PULSE 84; RESP 18; TEMP 36.6; O2SAT 95
[2025-05-19] MEDS: Lidocaine 5% Patch 1 PATCH TP (18:16)
[2025-05-19] MEDS: Methocarbamol 500 MG TAB 1000 MG PO (18:17)
[2025-05-19] MEDS: oxyCODONE 10 MG TAB PO (18:17)
[2025-05-19] MEDS: Ibuprofen 400 MG TAB PO (18:18)
[2025-05-19] MEDS: Dexamethasone 4 MG TAB 10 MG PO (18:18)
[2025-05-19] MEDS: Acetaminophen 500 MG TAB 1000 MG PO (18:19)
[2025-05-19 18:38] VITALS: BP 129/71; PULSE 66; RESP 20; O2SAT 96
--- NOTE | 2025-05-19 19:54 | ED.GENADUL_ITS ---
Discharge Plan Disposition Patient Disposition: Home Discharge Details Clinical Impression: Acute back pain Primary Care Provider: None,None ED Provider: Roni Perry Home Meds and New Rx's Prescriptions: New methocarbamol 1,000 mg tablet 1,000 mg PO TID 5 Days Qty: 15 0RF lidocaine [Lidoderm] 5 % adhesive patch,medicated 1 patch topical DAILY Qty: 15 0RF Rx Instructions: leave on most painful area for up to 12 hrs Discharge Instructions Instructions: Low Back Pain ED Additional Instructions: Symptoms seem most consistent with sciatica. This can take some time to get all the way better. Try gentle stretching, heat to the area, gentle movements, the longer you stay still the stiff for the muscles will get. Medications given in the emergency department and additional prescriptions sent to the pharmacy. continue motrin and tylenol, over the counter as well HPI General Date/Time Provider Initiated Documentation: 05/19/25 17:49 . Limitations to Documentation: no limitations . Information obtained by: patient . 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 He reports that he has had symptoms like this previously years ago that took several weeks to resolve. Reports severe right-sided back pain that feels like he is being stabbed. He localizes the pain to his deep right buttock. No numbness tingling or incontinence noted. Has not tried any medication for relief of symptoms. Related Data Home Medications ?Medication ?Instructions ?Recorded ?Confirmed lidocaine 5 % topical patch 1 patch topical DAILY #15 ea 05/19/25 (Lidoderm) methocarbamol 1,000 mg tablet 1,000 mg PO TID 5 days # 15 tabs 05/19/25 Previous Rx's ?Medication ?Instructions ?Recorded lidocaine 5 % topical patch 1 patch topical DAILY #15 ea 05/19/25 (Lidoderm) methocarbamol 1,000 mg tablet 1,000 mg PO TID 5 days # 15 tabs 05/19/25 Allergies Allergy/AdvReac Type Severity Reaction Status Date / Time Penicillins Allergy Intermediate unsure Verified 05/19/25 17:46 General Stated Complaint: Nk/Back Pain SHAYY: 4 Exam Narrative Exam Narrative: Review of Systems: All systems reviewed & are unremarkable except as noted in HPI and below Well-developed, no acute distress obese NCAT RRR Unlabored respiratory effort Nondistended abdomen No midline back tenderness step-off or deformity able to stand and bear weight, gait not significantly affected Bilateral lower extremities with 5 out of 5 strength and sensation intact Course Vital Signs Vital signs: Vital Signs Temperature 36.6 C 05/19/25 17:43 Pulse 84 05/19/25 17:43 Respiratory Rate 18 05/19/25 17:43 Blood Pressure 183/92 H 05/19/25 17:43 Pulse Oximetry 95 05/19/25 17:43 Temperature 36.6 C 05/19/25 17:43 Temperature Source Oral 05/19/25 17:43 Pulse 66 05/19/25 18:38 Respiratory Rate 20 05/19/25 18:38 Blood Pressure 129/71 05/19/25 18:38 Blood Pressure Position Standing 05/19/25 17:43 Pulse Oximetry 96 05/19/25 18:38 Oxygen Delivery Method Room Air 05/19/25 17:43 Oxygen Flow Rate 0 05/19/25 17:43 Pain Level 10 05/19/25 18:18 Medical Decision Making Emergent evaluation of atraumatic back pain. Patient has no history of malignancy, IVDU, surgery. He recalls. He was seen in the consult couple of times patient is neurologically intact, I have a very low suspicion for an acute spinal cord emergency. I do not feel imaging is indicated at this time. Patient has not tried any medications for relief at home. Will initiate medications here in the emergency department and prescriptions have been sent to the pharmacy for further treatment. Recommend close follow-up with PCP and return precautions advised. PFSH All Active Problems (Updated 05/19/25 @ 17:58 by Roni Perry MD) Acute back pain (Acute) Unintentional Tylenol overdose (Acute) Pain, dental (Acute) SARS-CoV-2 positive (Acute) Surgical History H/O eye surgery H/O spinal fusion Social History Smoking/Tobacco Use Status: Current every day Tobacco Type: smokeless tobacco Smoking risk assessment performed?: Yes Alcohol Intake: current Alcohol Intake frequency: a few times a month Drug use: Never Substance use type: does not use Do you feel safe at home: Yes Do you feel safe in your relationship?: Yes PAWSS Have you Been Recently Intoxicated or Drunk Within the Last 30 days?: No Have you Ever Experienced Previous Episodes of Alcohol Withdrawal?: No Have you ever Experienced Withdrawal Seizures?: No Have you ever Experienced Delirium Tremens(DT)s?: No Have you ever undergone Alcohol Rehabilitation Treatment (i.e, inpt ot outpatient treatment programs)?: No Have you ever Experienced Blackouts?: No Have you ever Combined Alcohol with other Downers within the last 90 days?: No Have you ever Combined Alcohol with any other Substance of Abuse during the last 90 days?: No Positive Blood Alcohol level on Presentation? [PCS.BAL]: No Evidence of Increased Autonomic Activity (i.e. HR>120, tremor, sweating, agitation, nausea)?: No Result: 0
--- NOTE | 2025-05-20 18:37 | NUR.NOTE ---
Nursing Note: this RN in chart D/T pt having quesitons on his prescription that was given to him one day prior to today
== END 2025-05-19 18:38 | disposition home or self-care (01) ==
PROVIDERS: Emergency Provider Emergency Medicine
DX: M54.50 Low back pain, unspecified (principal); Z98.1 Arthrodesis status; F17.290 Nicotine dependence, other tobacco product, uncomplicated
CPT/HCPCS: 99283; J8540

== ENCOUNTER 2025-05-24 14:35 | Emergency (ER) | payer SELFPAY ==
[2025-05-24 14:39] VITALS: BP 150/88; PULSE 97; RESP 18; TEMP 36.6; O2SAT 98
--- NOTE | 2025-05-24 15:07 | W.ED.GENAD ---
Discharge Plan Disposition Patient Disposition: Home Condition: Stable Discharge Details Clinical Impression: Acute back pain Primary Care Provider: None,None ED Provider: Selena Kingsley Home Meds and New Rx's Prescriptions: New oxycodone 10 mg tablet 10 mg PO Q8H PRNQty: 14 0RF No Action lidocaine [Lidoderm] 5 % adhesive patch,medicated 1 patch topical DAILY Qty: 15 0RF Rx Instructions: leave on most painful area for up to 12 hrs Discharge Instructions Instructions: Low Back Pain ED Additional Instructions: You were seen in the emergency department today for evaluation of lower back pain. In her department a full physical examination that was quite reassuring, and received several medications for management of your pain. At this time, we discussed the role of imaging and you should reach out to your primary care provider once your pain has started to improve to discuss whether or not outpatient MRI imaging would be the correct next step. Please use therapeutic dosing of Tylenol (acetaminophen) & Advil (ibuprofen) in an alternating fashion as follows: Take 1000mg of Tylenol every 6 hours without missing doses- that is 4 times per day. [place] in between the Tylenol doses, take 600mg of Advil also on a 6 hour schedule, that is also 4 times per day. With this strategy, you will be taking something for fever/pain as often as every 3 hours. The daily maximum dosing of Tylenol is 4000mg, and the daily maximum dosing of Advil is 2400mg. Please note that some common cold medications & prescription pain medications may contain acetaminophen and you need to read OTC drug labels and factor that in to maximum daily doses. You should continue to use heat and gentle motion and stretching, and I have provided you with a prescription for oxycodone to be taken as needed for severe breakthrough pain. Please follow-up with your primary care provider in the next few days to discuss this visit and any symptoms that change, worsen, or persist. Thank you for allowing us to be part of your care. Discharge Data Discharge Date/Time-TO BE ENTERED AT DEPARTURE: 05/24/25 17:27 HPI General Mode of arrival: ambulatory. Date/Time Provider Initiated Documentation: 05/24/25 14:38. Limitations to Documentation: no limitations. Information obtained by: patient. HPI Narrative: This is a 44-year-old male patient with a past medical history significant for asthma who is presenting for evaluation of right-sided lower back pain. The patient reports he has had this pain for approximately 1 week, was seen in the emergency department on the and had symptoms at that time concerning for sciatica. His symptoms occurred when he was bent over and lifting an object. States that it was not excessively heavy but he did have a sudden onset of right lower back pain that makes it difficult to get up and move. He states that it feels like a knife is stabbing into him. Today the pain has worsened despite taking Tylenol and ibuprofen. He attempted Lidoderm patches but this did not work for him, has a history of morbid obesity and states that topical medications often cannot penetrate appropriately. He has been utilizing the methocarbamol as well as the short course of oxycodone that he was provided at his last visit. He states that he has not had new injury, denies saddle anesthesia, bowel or bladder incontinence or dysuria, and has not had radiation of the pain down into his legs. He denies numbness, weakness, or tingling of the lower extremities. States that heat has been slightly helpful in improving his pain. Related Data Home Medications ?Medication ?Instructions ?Recorded ?Confirmed lidocaine 5 % topical patch 1 patch topical DAILY #15 ea 05/19/25 05/24/25 (Lidoderm) oxycodone 10 mg tablet 10 mg PO Q8H PRN #14 tabs 05/24/25 Previous Rx's ?Medication ?Instructions ?Recorded lidocaine 5 % topical patch 1 patch topical DAILY #15 ea 05/19/25 (Lidoderm) oxycodone 10 mg tablet 10 mg PO Q8H PRN #14 tabs 05/24/25 Allergies Allergy/AdvReac Type Severity Reaction Status Date / Time Penicillins Allergy Intermediate unsure Verified 05/24/25 14:42 General Stated Complaint: Recheck SHAYY: 4 Exam Narrative Exam Narrative: Gen: Awake and alert, in no apparent distress HEENT: Non-icteric sclera Neck: Supple Lungs: No apparent respiratory distress, normal respiratory effort. CV: Appears well perfused Abdomen: Non-distended MSK: Moves 4 extremities without apparent limitation in ROM. The patient does move stiffly and has pain with flexion and extension and rotation of the lower back. He has no midline spine tenderness or step-offs, has tenderness to palpation over the right SI joint, right lower flank and just superior to the right buttock. No overlying skin changes, no palpable muscular spasms. Skin: Visualized skin without rashes, cyanosis. Neuro: Antalgic gait, no obvious focal deficits or facial asymmetry. Moves bilateral lower extremities without weakness or deficit, no sensory deficits. Speaks in full, clear sentences. Psych: Appropriate for situation. Course Vital Signs Vital signs: Vital Signs Temperature 36.6 C 05/24/25 14:39 Pulse 97 H 05/24/25 14:39 Respiratory Rate 18 05/24/25 14:39 Blood Pressure 150/88 H 05/24/25 14:39 Pulse Oximetry 98 05/24/25 14:39 Temperature 36.6 C 05/24/25 14:39 Temperature Source Oral 05/24/25 14:39 Pulse 97 H 05/24/25 14:39 Respiratory Rate 18 05/24/25 14:39 Blood Pressure 150/88 H 05/24/25 14:39 Blood Pressure Position Standing 05/24/25 14:39 Pulse Oximetry 98 05/24/25 14:39 Oxygen Delivery Method Room Air 05/24/25 14:39 Oxygen Flow Rate 0 05/24/25 14:39 Medical Decision Making This is a 44-year-old male patient presenting for reevaluation of ongoing right lower back pain. Differential includes but is not limited to sciatica, slipped disc or degenerative disc disease, muscle spasm or strain, considered SI joint inflammation. The patient at this time has no new trauma to suggest fracture or dislocation, he has no red flag symptoms such as neurodeficit, saddle anesthesia or bowel dysfunction, and my exam is less concerning for spinal cord compressive syndromes such as cauda equina, spinal epidural hematoma or abscess, transverse myelitis, etc. The patient denies urinary symptoms, though I did certainly consider kidney stone. No abdominal pain, hemodynamic instability, or significant past medical history suggestive of aortic pathology. The brief duration of symptoms is reassuring against significant Tylenol pathology and the patient is without nausea or vomiting or abdominal pain to suggest toxicity. I had a an extended conversation with the patient regarding multimodal pain management options. At this time, we will provide the patient with a dose of Toradol intramuscularly and will trial a dose of Flexeril. The patient has been taking in excess of the recommended amount of Tylenol per day and I counseled him strongly on limiting his Tylenol use to prevent liver injury. At this time, I do not see an indication to proceed emergently with advanced imaging such as x-ray or CT scan, as I do not think that it would change treatment or management. However, after this patient's pain crisis this past he may benefit from outpatient MRI from his primary care provider to evaluate for actionable causes of his pain. - Received modest improvement after Toradol and Flexeril, received an oral oxycodone to better effect, and was able to get up from the bed and ambulate. I provided him with a prescription for oxycodone to use for severe breakthrough pain, and counseled him on appropriate Tylenol and ibuprofen dosages once more. Urinalysis without hematuria to suggest kidney stone, no proteinuria to suggest kidney injury. At this time, the patient has had a full medical evaluation and is safe for discharge to home. They are hemodynamically stable, ambulatory, and tolerating PO. They are understanding of the follow-up plan and return precautions. They left our facility without incident. Selena Kingsley MD [facility] All Active Problems (Updated 05/24/25 @ 17:05 by Selena Kingsley MD) Acute back pain (Acute) Unintentional Tylenol overdose (Acute) Pain, dental (Acute) SARS-CoV-2 positive (Acute) Surgical History H/O eye surgery H/O spinal fusion Social History Smoking/Tobacco Use Status: Current every day Tobacco Type: smokeless tobacco Smoking risk assessment performed?: Yes Alcohol Intake: current Alcohol Intake frequency: a few times a month Drug use: Never Substance use type: does not use Do you feel safe at home: Yes Do you feel safe in your relationship?: Yes
[2025-05-24] MEDS: Cyclobenzaprine 10 MG TAB PO (15:20)
[2025-05-24] MEDS: Ketorolac 30 MG/ML VIAL IM (15:20)
[2025-05-24 15:33] LABS: Glucose Negative (Negative)
[2025-05-24] MEDS: oxyCODONE 10 MG TAB PO (16:03)
[2025-05-24 17:19] VITALS: BP 138/52; PULSE 69; TEMP 36.4; O2SAT 97
== END 2025-05-24 17:27 | disposition home or self-care (01) ==
PROVIDERS: Emergency Provider Emergency Medicine
DX: M54.9 Dorsalgia, unspecified (principal)
CPT/HCPCS: 99283; 99284; 96372; 81003; J1885

== ENCOUNTER 2025-08-09 20:51 | Emergency (ER) | payer SELFPAY ==
[2025-08-09 20:54] VITALS: BP 198/107; PULSE 68; RESP 16; TEMP 36.4; O2SAT 99
[2025-08-09 20:57] VITALS: BP 198/107; PULSE 68; RESP 16; TEMP 36.4; O2SAT 99
--- NOTE | 2025-08-09 21:10 | W.ED.GENAD ---
Discharge Plan Disposition Patient Disposition: Home Condition: Stable Discharge Details Clinical Impression: Pain, dental Primary Care Provider: None,None ED Provider: Ed Pagan Home Meds and New Rx's Prescriptions: New clindamycin HCl 150 mg capsule 450 mg PO TID 7 Days Qty: 63 0RF gabapentin 300 mg capsule 300 mg PO TID Qty: 21 0RF Discharge Instructions Additional Instructions: Please only take 1000 mg of acetaminophen every 6 hours and 600 mg of ibuprofen every 6 hours. You can also take the gabapentin as prescribed. Follow-up with a dentist when you are able to. If you feel more ill or new symptoms such as high fevers return to the emergency department for reevaluation. HPI General Mode of arrival: ambulatory. Date/Time Provider Initiated Documentation: 08/09/25 20:56. Limitations to Documentation: no limitations. Information obtained by: patient. History of Present Illness 44 year old M presents to the emergency department with the chief complaint of dental pain, described as moderate, Quality is described as aching, and it has been constant. No relieving factors improve symptom(s), No exacerbating factors reported . Patient notes no other symptoms.. Related Data Home Medications ?Medication ?Instructions ?Recorded ?Confirmed clindamycin HCl 150 mg capsule 450 mg (3 x 150 mg) PO TID 7 days 08/09/25 #63 caps gabapentin 300 mg capsule 300 mg PO TID #21 caps 08/09/25 Previous Rx's ?Medication ?Instructions ?Recorded clindamycin HCl 150 mg capsule 450 mg (3 x 150 mg) PO TID 7 days 08/09/25 #63 caps gabapentin 300 mg capsule 300 mg PO TID #21 caps 08/09/25 Allergies Allergy/AdvReac Type Severity Reaction Status Date / Time Penicillins Allergy Intermediate unsure Verified 08/09/25 20:57 General Stated Complaint: DentalOral SHAYY: 3 Review of Systems All systems reviewed & are unremarkable except as noted in HPI and below Constitutional Constitutional: Denies chills, Denies fever(s) and Denies weakness Cardiovascular Cardiovascular: Denies chest pain and Denies dyspnea Respiratory Respiratory: Denies cough and Denies dyspnea Gastrointestinal Gastrointestinal: Denies abdominal pain and Denies vomiting Integumentary/Breasts Skin/Breast: Denies rash Neurologic Neurologic: Denies weakness Exam Const General: no acute distress Orientation: alert HENPR Head: normal to inspection Ears: external ears normal General nose exam: external nose normal Mouth: moist mucous membranes Teeth and gingiva: poor dentition Eyes General: appearance normal, both eyes and all related structures Neck Neck: normal visual inspection Resp Effort & Inspection: normal respiratory effort and able to speak in complete sentences Cardio Rate: regular rate Skin General skin exam: no rashes or lesions noted Neuro General: patient alert and patient oriented x3 Extrem General: normal to inspection Psych Mental Status: mental status grossly normal Course Vital Signs Vital signs: Vital Signs Temperature 36.4 C 08/09/25 20:54 Pulse 68 08/09/25 20:54 Respiratory Rate 16 08/09/25 20:54 Blood Pressure 198/107 H 08/09/25 20:54 Pulse Oximetry 99 08/09/25 20:54 Temperature 36.4 C 08/09/25 20:57 Pulse 68 08/09/25 20:57 Respiratory Rate 16 08/09/25 20:57 Blood Pressure 198/107 H 08/09/25 20:57 Pulse Oximetry 99 08/09/25 20:57 Pain Level 10 08/09/25 20:57 Medical Decision Making 44-year-old male who denies any chronic medical problems comes in with 10 days of right lower posterior molar pain. He says that he was eating and noticed that part of his tooth broke off. He says he has poor dentition chronically. He denies any fevers or systemic symptoms. He tells me he has been taking Tylenol and ibuprofen regularly and states that he takes 1000 mg of acetaminophen every 6 hours. He denies any abdominal pain or vomiting. No fevers. He is well-appearing on exam. His right posterior molar has a large central carry and the medial portion of the tooth seems to have broken off. There is no apical abscess. He has no submandibular swelling. His uvula is midline. He has no findings on exam to suggest Helen's. I started him on clindamycin. I educated on proper dosing of Tylenol and ibuprofen as well. Will provide him with gabapentin and small amount of morphine. He will follow-up with the dentist and return precautions given Differential Diagnosis Differential Diagnosis: Pulpitis,caries PFSH All Active Problems (Updated 08/09/25 @ 21:20 by Ed Pagan MD) Pain, dental (Acute) Unintentional Tylenol overdose (Acute) Pain, dental (Acute) SARS-CoV-2 positive (Acute) Surgical History H/O eye surgery H/O spinal fusion Social History Smoking/Tobacco Use Status: Current every day Tobacco Type: smokeless tobacco Smoking risk assessment performed?: Yes Alcohol Intake: current Alcohol Intake frequency: a few times a month Drug use: Never Substance use type: does not use Do you feel safe at home: Yes Do you feel safe in your relationship?: Yes PAWSS Have you Been Recently Intoxicated or Drunk Within the Last 30 days?: Yes Have you Ever Experienced Previous Episodes of Alcohol Withdrawal?: No Have you ever Experienced Withdrawal Seizures?: No Have you ever Experienced Delirium Tremens(DT)s?: No Have you ever undergone Alcohol Rehabilitation Treatment (i.e, inpt ot outpatient treatment programs)?: No Have you ever Experienced Blackouts?: No Have you ever Combined Alcohol with other Downers within the last 90 days?: No Have you ever Combined Alcohol with any other Substance of Abuse during the last 90 days?: No Positive Blood Alcohol level on Presentation? [PCS.BAL]: No Evidence of Increased Autonomic Activity (i.e. HR>120, tremor, sweating, agitation, nausea)?: No Result: 1
[2025-08-09] MEDS: Gabapentin 300 MG CAP PO (21:16)
[2025-08-09] MEDS: MORPHine IR 15 MG TAB, 4 TABS/BTL PO (21:16)
[2025-08-09] MEDS: Clindamycin 150 MG CAP 450 MG PO (21:16)
[2025-08-09] MEDS: MORPHine IR 15 MG TAB PO (21:16)
== END 2025-08-09 21:28 | disposition home or self-care (01) ==
PROVIDERS: Emergency Provider Emergency Medicine
DX: K08.89 Other specified disorders of teeth and supporting structures (principal)
CPT/HCPCS: 99283 ×2

== ENCOUNTER 2025-08-19 22:18 | Emergency (ER) | payer SELFPAY ==
--- NOTE | 2025-08-19 22:20 | ED.GENADUL_ITS ---
Discharge Plan Disposition Patient Disposition: Home Condition: Good Discharge Details Clinical Impression: Abscess, dental Primary Care Provider: None,None ED Provider: Rudi Colón and New Rx's Prescriptions: New clindamycin HCl [Cleocin HCl] 150 mg capsule 450 mg PO Q6H Qty: 72 0RF Discharge Instructions Instructions: Tooth Abscess ED Additional Instructions: You were seen for recurrent pain and swelling related to a dental infection. There is a gingival abscess likely resulting from deeper infection that I was able to drain a scant amount of pus from. We will restart your clindamycin and have you take it every 6 hours. Contact your dentist for further follow up. Alternate 1 gram of acetaminophen with 600 mg of ibuprofen every 4 hours. Return to ED for difficulty breathing, inability to swallow, increase pain/swelling/redness of face. HPI General Mode of arrival: ambulatory . Date/Time Provider Initiated Documentation: 08/19/25 22:20 . Limitations to Documentation: no limitations . Information obtained by: patient, RN notes reviewed and old records reviewed . HPI Narrative: Patient presents to the ED with complaint of right lower molar pain and swelling. Patient has just finished a course of clindamycin. He has seen a dentist and needs a root canal. He was doing better but the infection has returned. He has significant pain and swelling on the inside gingival area of the involved. Denies fever, trouble breathing, difficulty swallowing. Related Data Home Medications ?Medication ?Instructions ?Recorded ?Confirmed clindamycin HCl 150 mg capsule 450 mg (3 x 150 mg) PO Q6H #72 caps 08/19/25 (Cleocin HCl) Previous Rx's ?Medication ?Instructions ?Recorded clindamycin HCl 150 mg capsule 450 mg (3 x 150 mg) PO Q6H #72 caps 08/19/25 (Cleocin HCl) Allergies Allergy/AdvReac Type Severity Reaction Status Date / Time Penicillins Allergy Intermediate unsure Verified 08/09/25 20:57 General SHAYY: 3 Exam Narrative Exam Narrative: Const: Obese male in NAD. VS per triage. HEENT: NC/AT. Normal facial exam. Lower first molar on the right is fractured, gingival abscess present on the interior side. Neck: Supple. Trachea midline. Lungs: Normal respiratory effort. Neuro: A+O x 3. Normal speech, mentation, gait. Cranial nerves II - XII grossly intact. No gross motor or sensory deficit. Procedure Abscess Drainage Date of Procedure: 08/19/25 Time of Procedure: 22:46 Provider that performed the procedure: Rudi Colón Standard Time Out Performed: Yes Patient Consented: Verbally Location of Exam: Oral Indication: Abscess. Local anesthetic: other anesthetic (topical benzocaine), Sterility: Non Sterile. Procedure Prep: Hand hygiene. Technique used needle aspiration. Irrigation: No irrigation Outcome: Sucessful Procedure Description/Note: blood and scant pus aspirated Ultrasound: Not used Complications: None Medical Decision Making Patient presenting to ED with recurrent dental abscess with evidence of gingival abscess. Patient verbally consented to needle aspiration. Topical benzocaine used. 22-gauge needle used to aspirate with mostly blood and some scant pus obtained. Patient thinks he has been on amoxicillin in the past despite having a penicillin allergy. Review of his medications that are provided through us as well as review of [facility] shows no penicillins ever provided. As such we will restart clindamycin and refer back to his dentist for further management. May continue alternating acetaminophen and ibuprofen. Return precautions provided. Medical Records Medical records reviewed: Yes I reviewed the patient's medical records. Medical records narrative: previous abx use PFSH All Active Problems (Updated 08/19/25 @ 22:58 by Rudi Colón MD) Abscess, dental (Acute) Pain, dental (Acute) Unintentional Tylenol overdose (Acute) Pain, dental (Acute) SARS-CoV-2 positive (Acute) Medical History Asthma Surgical History H/O eye surgery H/O spinal fusion Social History Smoking/Tobacco Use Status: Current every day Tobacco Type: smokeless tobacco Smoking risk assessment performed?: Yes Alcohol Intake: current Alcohol Intake frequency: a few times a month Drug use: Never Substance use type: does not use Housing: house Do you feel safe at home: Yes Do you feel safe in your relationship?: Yes POCUS Exam (ED) Limited Soft Tissue Exam PROVIDER THAT PERFORMED THE STUDY: Rudi Colón
[2025-08-19 22:21] VITALS: BP 201/81; PULSE 79; RESP 22; TEMP 36.6; O2SAT 98
[2025-08-19 22:25] VITALS: BP 201/81; PULSE 79; RESP 22; TEMP 36.6; O2SAT 98
[2025-08-19] MEDS: Benzocaine 20% Gel 30 GM JAR MM (22:44)
[2025-08-19] MEDS: Clindamycin 150 MG CAP, 12 CAPS/BTL 450 MG PO (23:04)
== END 2025-08-19 23:09 | disposition home or self-care (01) ==
PROVIDERS: Emergency Provider Emergency Medicine
DX: R68.84 Jaw pain (principal); K04.7 Periapical abscess without sinus
CPT/HCPCS: 10160